=== PATIENT | male | born 1985 | race Caucasian/White ===

== ENCOUNTER 2020-09-27 13:01 | Emergency (ER) | payer OTHER ==
[2020-09-27] MEDS ORDERED: NORCO 5-325 TA1 EACH PO (14:42)
[2020-09-27 14:45] LABS: RED BLOOD COUNT 4.78 M/UL (4.20-5.50); WHITE BLOOD COUNT 11.7 K/UL (4.5-11.0)
[2020-09-27 15:08] LABS: BUN/CREATININE RATIO 23 (0-10)
[2020-09-27] MEDS ORDERED: TESSALON PERLE100 MG PO (16:51)
[2020-09-27] MEDS ORDERED: VENTOLIN HFA 66.7 GM INH (16:51)
== END 2020-09-27 17:03 | disposition home or self-care (01) ==
LOC: ER1 13:01
PROVIDERS: Preventive Medicine Occupational Medicine
DX: R06.02 Shortness of breath (principal); R00.0 Tachycardia, unspecified; R07.89 Other chest pain; Z88.0 Allergy status to penicillin; Z88.2 Allergy status to sulfonamides
CPT/HCPCS: 36600; 71045; 80053; 80307; 81001; 82550; 82553; 82803; 83605; 83690; 83874; 83880; 84484; 85025; 85379; 85652; 86140; 87086; 87635; 93005; 94664; 94760; 96374; 99285